=== PATIENT | male | born 1970 | race Caucasian/White ===

== ENCOUNTER → 2024-11-16 14:01 | Outpatient (BNVA) | payer OTHER, SELFPAY | PROVIDERS: Visit Provider Nurse Practitioner Family | DX: L82.1 Other seborrheic keratosis (principal); L81.4 Other melanin hyperpigmentation; L57.8 Other skin changes due to chronic exposure to nonionizing radiation; B07.8 Other viral warts; R23.8 Other skin changes; L53.8 Other specified erythematous conditions; L29.89 Other pruritus; Z78.9 Other specified health status; D48.5 Neoplasm of uncertain behavior of skin; L57.0 Actinic keratosis | CPT/HCPCS: 11102; 17000; 17110; 99203 ==

== ENCOUNTER → 2024-12-30 07:54 | Outpatient (BNVA) | payer OTHER, SELFPAY | PROVIDERS: Visit Provider Nurse Practitioner Family | DX: B07.8 Other viral warts (principal); L81.4 Other melanin hyperpigmentation; L57.8 Other skin changes due to chronic exposure to nonionizing radiation | CPT/HCPCS: 99213 ==